=== PATIENT | female | born 1975 | race Caucasian/White ===

== ENCOUNTER 2019-04-04 05:54 | Day surgery (SDC) | payer OTHER ==
[2019-04-04] MEDS ORDERED: CIPROFLOXACIN 400 MG in D5W 200 ML IVPB (06:00)
[2019-04-04] MEDS ORDERED: PROPOFOL 20 ML (07:08)
[2019-04-04] MEDS ORDERED: LIDOCAINE 2% (SDV) 5 ML INJ (07:08)
[2019-04-04] MEDS ORDERED: FENTAnyl 50 MCG/ML VIAL (07:09)
[2019-04-04] MEDS ORDERED: OXYCODONE/ACETAMINOPHEN (5/325) TAB PO ×2 (07:30)
[2019-04-04] MEDS ORDERED: MEPERIDINE 25 MG INJ IV (07:30)
[2019-04-04] MEDS ORDERED: ONDANSETRON 4 MG INJ IV (07:30)
[2019-04-04] MEDS ORDERED: LABETALOL HCL 20MG INJ IV (07:30)
[2019-04-04] MEDS ORDERED: hydrALAzine 20 MG INJ IV (07:30)
[2019-04-04] MEDS ORDERED: FENTAnyl 50 MCG/ML VIAL IV ×3 (07:30)
[2019-04-04] MEDS ORDERED: DEXAMETHASONE 4 MG/ML 5 ML INJ (07:38)
[2019-04-04] MEDS ORDERED: ONDANSETRON 4 MG INJ (07:38)
[2019-04-04] MEDS: LACTATED RINGER'S 1,000 ML IV (07:40)
[2019-04-04] MEDS: IOHEXOL 300MG/ML 30 ML BTL (08:06)
== END 2019-04-04 10:36 | disposition home or self-care (01) ==
LOC: SDS 05:54
DX: N20.1 Calculus of ureter (principal); E78.5 Hyperlipidemia, unspecified
CPT/HCPCS: 52356; 84703